=== PATIENT | male | born 1975 | race Caucasian/White ===

== ENCOUNTER 2017-11-09 21:56 | Observation (INO) | payer MEDICAID, OTHER ==
[2017-11-09] MEDS: ASPIRIN 325 MG TAB PO (22:40)
[2017-11-09 22:41] LABS: ADD MAN DIFF? NO
[2017-11-09 22:47] LABS: BASOPHILS % 0.3 % (0.0-2.0); EOSINOPHILS # 0.3 10^3/ul (0.0-0.5); EOSINOPHILS % 2.5 % (0.0-7.0); HEMATOCRIT 40.6 % (42.0-52.0); HEMOGLOBIN 13.8 g/dl (14.0-18.0); LYMPHOCYTES # 3.5 10^3/ul (0.8-2.9); LYMPHOCYTES % 33.7 % (15.0-51.0); MEAN CORPUSCULAR HEMOGLOBIN 29.1 pg (29.0-33.0); MEAN CORPUSCULAR VOLUME 85.7 fl (82.0-101.0); MEAN PLATELET VOLUME 11.5 fl (7.4-10.4); MONOCYTE # 0.8 10^3/ul (0.3-0.9); MONOCYTES % 7.6 % (0.0-11.0); NEUTROPHIL # 5.8 10^3/ul (1.6-7.5); NEUTROPHILS % 55.6 % (39.0-77.0); PLATELET COUNT 310 10^3/UL (140-415); RED BLOOD COUNT 4.74 10^6/ul (4.70-6.10); RED CELL DISTRIBUTION WIDTH 13.4 % (11.5-14.5)
[2017-11-09 22:47] LABS: WHITE BLOOD COUNT 10.3 10^3/ul (4.8-10.8)
[2017-11-09 23:07] LABS: ANION GAP 12 (8-16); BLOOD UREA NITROGEN 14 mg/dl (7-20); CALCIUM 9.3 mg/dl (8.4-10.2); CARBON DIOXIDE 25 mmol/L (21-31); CHLORIDE 109 mmol/L (97-110); CREATININE 0.81 mg/dl (0.61-1.24); GLUCOSE 133 mg/dl (70-220); POTASSIUM 3.6 mmol/L (3.5-5.1); SODIUM 142 mmol/L (135-144)
[2017-11-09 23:18] LABS: B-TYPE NATRIURETIC PEPTIDE 32 PG/ML (0-125); TROPONIN-I < 0.010 ng/ml (0.000-0.120)
[2017-11-10] MEDS ORDERED: NACL 0.9% 3 ML SYG IV (03:30)
[2017-11-10] MEDS ORDERED: NITROGLYCERIN (SL) 0.4 MG TAB SL (03:30)
[2017-11-10] MEDS ORDERED: ONDANSETRON 4 MG INJ IV (03:30)
[2017-11-10] MEDS ORDERED: BISACODYL (EC) 5 MG TAB PO (03:30)
[2017-11-10] MEDS ORDERED: ACETAMINOPHEN 325 MG TAB PO (03:30)
[2017-11-10] MEDS ORDERED: DOCUSATE SODIUM 100 MG CAP PO (03:30)
[2017-11-10] MEDS ORDERED: morphine 2 MG INJ IV (03:30)
[2017-11-10] MEDS ORDERED: KETOROLAC 30 MG INJ IV (03:53)
[2017-11-10] MEDS: SOD CHLORIDE 0.9% 1,000 ML IV (04:40)
[2017-11-10] MEDS ORDERED: ASPIRIN 81 MG TAB PO (09:00)
[2017-11-10 09:34] LABS: ADD MAN DIFF? NO
[2017-11-10 09:38] LABS: WHITE BLOOD COUNT 7.8 10^3/ul (4.8-10.8)
[2017-11-10 09:38] LABS: BASOPHILS % 0.4 % (0.0-2.0); EOSINOPHILS # 0.3 10^3/ul (0.0-0.5); EOSINOPHILS % 3.9 % (0.0-7.0); HEMATOCRIT 42.1 % (42.0-52.0); HEMOGLOBIN 13.8 g/dl (14.0-18.0); LYMPHOCYTES # 2.2 10^3/ul (0.8-2.9); LYMPHOCYTES % 27.9 % (15.0-51.0); MEAN CORPUSCULAR HEMOGLOBIN 28.6 pg (29.0-33.0); MEAN CORPUSCULAR HGB CONC 32.8 g/dl (32.0-37.0); MEAN CORPUSCULAR VOLUME 87.3 fl (82.0-101.0); MEAN PLATELET VOLUME 10.9 fl (7.4-10.4); MONOCYTE # 0.6 10^3/ul (0.3-0.9); MONOCYTES % 7.7 % (0.0-11.0); NEUTROPHIL # 4.7 10^3/ul (1.6-7.5); NEUTROPHILS % 59.7 % (39.0-77.0); PLATELET COUNT 272 10^3/UL (140-415); RED BLOOD COUNT 4.82 10^6/ul (4.70-6.10); RED CELL DISTRIBUTION WIDTH 13.4 % (11.5-14.5)
[2017-11-10 10:14] LABS: CREATINE KINASE 49 IU/L (23-200)
[2017-11-10 10:18] LABS: ALANINE AMINOTRANSFERASE 29 IU/L (13-69); ALBUMIN 3.7 g/dl (3.3-4.9); ALBUMIN/GLOBULIN RATIO 1.23; ALKALINE PHOSPHATASE 69 IU/L (42-121); ANION GAP 7 (8-16); ASPARTATE AMINO TRANSFERASE 19 IU/L (15-46); BILIRUBIN,INDIRECT 0.5 mg/dl (0-1.1); BILIRUBIN,TOTAL 0.5 mg/dl (0.2-1.3); BLOOD UREA NITROGEN 14 mg/dl (7-20); CALCIUM 8.8 mg/dl (8.4-10.2); CARBON DIOXIDE 29 mmol/L (21-31); CHLORIDE 109 mmol/L (97-110); CHOL/HDL RATIO 3.6 RATIO; CHOLESTEROL 165 mg/dl (100-200); GLUCOSE 102 mg/dl (70-220); HDL CHOLESTEROL 45 mg/dl (27-67); LDL CHOLESTEROL,CALCULATED 104 mg/dl; MAGNESIUM 1.9 mg/dl (1.7-2.5); POTASSIUM 4.3 mmol/L (3.5-5.1); SODIUM 141 mmol/L (135-144); TOTAL PROTEIN 6.7 g/dl (6.1-8.1); TRIGLYCERIDES 79 mg/dl (0-149)
[2017-11-10 10:19] LABS: CK INDEX 0.6; CK-MB 0.29 ng/ml (0.0-2.4); TROPONIN-I < 0.010 ng/ml (0.000-0.120)
[2017-11-10 10:38] LABS: HEMOGLOBIN A1C 5.8 % (0-5.9)
[2017-11-10] MEDS: REGADENOSON 0.4 MG/5 ML SYG (12:27)
[2017-11-10 16:30] LABS: CREATINE KINASE 45 IU/L (23-200)
[2017-11-10 16:39] LABS: CK INDEX 0.6; CK-MB 0.29 ng/ml (0.0-2.4); TROPONIN-I < 0.010 ng/ml (0.000-0.120)
== END 2017-11-10 18:11 | disposition home or self-care (01) ==
LOC: E/R 21:56 → MS4 11-10 02:15
DX: R07.9 Chest pain, unspecified (principal); R73.03 Prediabetes; R94.39 Abnormal result of other cardiovascular function study; R06.02 Shortness of breath; E66.01 Morbid (severe) obesity due to excess calories; Z68.42 Body mass index [BMI] 45.0-49.9, adult
CPT/HCPCS: 36415; 71045; 78452; 80048; 80053; 80061; 82550; 82553; 83036; 83735; 83880; 84443; 84484; 85025; 93005; 93017; 93306; 99285-25; G0378

== ENCOUNTER 2017-11-12 21:16 | Emergency (ER) | payer MEDICAID ==
[2017-11-12 22:41] LABS: ADD MAN DIFF? NO
[2017-11-12 22:44] LABS: WHITE BLOOD COUNT 8.5 10^3/ul (4.8-10.8)
[2017-11-12 22:44] LABS: BASOPHILS % 0.4 % (0.0-2.0); EOSINOPHILS # 0.2 10^3/ul (0.0-0.5); EOSINOPHILS % 2.8 % (0.0-7.0); HEMATOCRIT 41.7 % (42.0-52.0); HEMOGLOBIN 14.1 g/dl (14.0-18.0); LYMPHOCYTES # 2.9 10^3/ul (0.8-2.9); MEAN CORPUSCULAR HEMOGLOBIN 29.1 pg (29.0-33.0); MEAN CORPUSCULAR HGB CONC 33.8 g/dl (32.0-37.0); MEAN CORPUSCULAR VOLUME 86.2 fl (82.0-101.0); MONOCYTE # 0.7 10^3/ul (0.3-0.9); MONOCYTES % 8.8 % (0.0-11.0); NEUTROPHIL # 4.5 10^3/ul (1.6-7.5); NEUTROPHILS % 53.6 % (39.0-77.0); PLATELET COUNT 303 10^3/UL (140-415); RED BLOOD COUNT 4.84 10^6/ul (4.70-6.10); RED CELL DISTRIBUTION WIDTH 13.2 % (11.5-14.5)
[2017-11-12 23:01] LABS: AADO2 Arterial 25.4 mmHg (7.0-24.0); Arterial Base Excess 1.1 mmol/L (-3.0-3); Arterial Blood Gas Oxygen Sat 95.9 mmHG (95.0-98.0); Arterial COHb 0.4 % (0.0-3.0); Arterial Fraction of Oxyhgb 95.4 % (93.0-99.0); Arterial HCO3 24.8 mmol/L (22.0-26.0); Arterial MetHb 0.1 % (0.0-1.5); Arterial Total Hemglobin 14.6 g/dl (12.0-18.0); Arterial pCO2 36.9 mmhg (35-45); MODE ROOM AIR; Site Right Brachial
[2017-11-12 23:05] LABS: ANION GAP 14 (8-16); BLOOD UREA NITROGEN 20 mg/dl (7-20); CALCIUM 8.8 mg/dl (8.4-10.2); CARBON DIOXIDE 25 mmol/L (21-31); CHLORIDE 107 mmol/L (97-110); CREATININE 0.98 mg/dl (0.61-1.24); GLUCOSE 99 mg/dl (70-220); POTASSIUM 3.9 mmol/L (3.5-5.1); SODIUM 142 mmol/L (135-144)
[2017-11-12 23:16] LABS: TROPONIN-I < 0.010 ng/ml (0.000-0.120)
== END 2017-11-13 00:07 | disposition home or self-care (01) ==
LOC: E/R 11-13 00:07
DX: R06.02 Shortness of breath (principal); R40.2252 Coma scale, best verbal response, oriented, at arrival to emergency department; R07.81 Pleurodynia; R40.2142 Coma scale, eyes open, spontaneous, at arrival to emergency department; R40.2362 Coma scale, best motor response, obeys commands, at arrival to emergency department
CPT/HCPCS: 36415; 36600; 71045; 80048; 82803; 84484; 85025; 85378; 93005; 99285-25